=== PATIENT | female | born 1935 | race Caucasian/White ===

== ENCOUNTER 2022-08-19 10:17 | Emergency (ER) | payer MEDICARE ==
[2022-08-19] MEDS ORDERED: Boostrix 0.5 ML (Tdap) VIAL (>/=7 yrs of age) ONE (10:46)
== END 2022-08-19 11:33 | disposition home or self-care (01) ==
LOC: BURERS 10:17
DX: S61.213A Laceration without foreign body of left middle finger without damage to nail, initial encounter (principal); Z23 Encounter for immunization; E11.9 Type 2 diabetes mellitus without complications; E03.9 Hypothyroidism, unspecified; E78.5 Hyperlipidemia, unspecified; I10 Essential (primary) hypertension; W50.3XXA Accidental bite by another person, initial encounter
CPT/HCPCS: 90471; 90715

== ENCOUNTER 2022-10-11 15:48 | Emergency (ER) | payer MEDICARE | END 2022-10-11 15:58 | disposition home or self-care (01) | LOC: BURERS 15:48 | DX: S61.411A Laceration without foreign body of right hand, initial encounter (principal); E11.9 Type 2 diabetes mellitus without complications; E03.9 Hypothyroidism, unspecified; E78.5 Hyperlipidemia, unspecified; I10 Essential (primary) hypertension; X58.XXXA Exposure to other specified factors, initial encounter | CPT/HCPCS: 99283 ==